=== PATIENT | female | born 1950 | race Caucasian/White ===

== ENCOUNTER → 2018-03-21 | Outpatient (CLI) | payer OTHER ==
[2018-03-21 12:41] LABS: HEMATOCRIT 39.2 % (35.0-46.0); HEMOGLOBIN 12.9 GM/DL (11.6-15.3); MEAN CELL VOLUME 77.9 FL (80.0-100.0); MEAN CORPUSCULAR HEMOGLOBIN 25.7 PG (27.0-34.0); MEAN PLATELET VOLUME 7.9 FL (7.0-11.0); PLATELET COUNT 303 TH/MM3 (150-450); RED BLOOD COUNT 5.03 MIL/MM3 (4.00-5.30); RED CELL DISTRIBUTION WIDTH 15.5 % (11.6-17.2); WHITE BLOOD COUNT 7.1 TH/MM3 (4.0-11.0)
[2018-03-21 13:12] LABS: ALBUMIN 3.8 GM/DL (3.4-5.0); ALT (GPT) 26 U/L (10-53); AST (GOT) 20 U/L (15-37); BICARBONATE 22.8 MEQ/L (21.0-32.0); BLOOD UREA NITROGEN 21 MG/DL (7-18); CALCIUM 8.8 MG/DL (8.5-10.1); CHLORIDE 108 MEQ/L (98-107); GLOMERULAR FILTRATION RATE 63 ML/MIN (>89); GLUCOSE,FASTING 103 MG/DL (74-99); SODIUM (NA) 140 MEQ/L (136-145)
[2018-03-21 13:15] LABS: ALKALINE PHOSPHATASE 89 U/L (45-117); TOTAL BILIRUBIN ADULT 0.3 MG/DL (0.2-1.0)
--- NOTE | 2018-03-21 13:23 | RADRPT ---
EXAM DATE: 03/21/2018 1:10 PM EDT AGE/SEX: 67 years / Female INDICATIONS: Evaluate for pneumonia, pneumothorax or communicable disease. Preop chest for hysterosc opy on 03/26/18 CLINICAL DATA: This is the patient's initial encounter. Patient reports that signs and symptoms have been present for 1 day and indicates a pain score of 0/10. MEDICAL/SURGICAL HISTORY: None. None. COMPARISON: No prior Sac exams available for comparison. FINDINGS: PA and lateral views of the chest demonstrate the lungs to be symmetrically aerated without evidence of mass, infiltrate or effusion. The cardiomediastinal contours are unremarkable. Osseous structures are intact. CONCLUSION: No acute cardiopulmonary findings. Electronically signed by: Yogesh Mendoza MD 03/21/2018 1:22 PM EDT
--- NOTE | 2018-03-22 14:54 | EKG ---
Date Performed: 03/21/2018 Time Performed: 12:32:17 PTAGE: 67 years EKG: Sinus rhythm POSSIBLE LEFT ATRIAL ENLARGEMENT SEPTAL MYOCARDIAL INFARCTION, PROBABLY OLD ABNORMAL ECG NO PREVIOUS TRACING DOCTOR: Brendan Billings Interpretating Date/Time 03/22/2018 14:52:08
== END ==
LOC: CPRE 12:11
PROVIDERS: ATTEND Obstetrics & Gynecology
DX: Z01.812 Encounter for preprocedural laboratory examination (principal); Z01.811 Encounter for preprocedural respiratory examination; Z01.810 Encounter for preprocedural cardiovascular examination; N95.0 Postmenopausal bleeding; R94.31 Abnormal electrocardiogram [ECG] [EKG]
CPT/HCPCS: 36415; 71046; 80053; 85027; 93005

== ENCOUNTER → 2018-03-26 | Day surgery (SDC) | payer OTHER ==
[~2018-03-26] VITALS: Ht 165.1 cm; Wt 82.9 kg
[~2018-03-26] MED LIST: ACETAMINOPHEN 1000 MG/100 ML 100 ML IV ONE; CHLORHEXIDINE GLUCONATE 2 % 1 PACK (2 CLOTHS) TOPICAL PRN; DEXAMETHASONE SOD PHOS 4 MG/ML VIAL IV ONE; DO NOT ADM ANY ANTICOAGULANT DRUGS PRN; KETOROLAC TROMETHAMINE 30 MG/ML (IVP) VIAL IM PRN; KETOROLAC TROMETHAMINE 30 MG/ML (IVP) VIAL IV PUSH ONE; LACTATED RINGER'S 1000 ML INJ 1,000 ML IV ONE; LACTATED RINGER'S 1000 ML IV PRN; LIDOCAINE HCL 1% PF 5 ML SYRINGE OTHER ONE; METOPROLOL TARTRATE 25 MG TAB PO PRN; MIDAZOLAM HCL 2 MG/2 ML VIAL ONE; ONDANSETRON HCL 4 MG/2 ML VIAL IV ONE; ONDANSETRON ODT 4 MG TAB SL PRN; POVIDONE IODINE 5% (ANTISEPSIS KIT) 4 APPLICATIONS EACH NARE PRN; PROPOFOL 200 MG/20 ML AMP IV ONE; SODIUM CHLORID 0.9% 500 ML IV PRN; ceFAZolin 2 GM/DEX PREMIX 50 ML IV SCH; oxyCODONE/ACETAMINOPHEN 5 MG/325 MG TAB PO PRN
--- NOTE | 2018-03-26 09:52 | MP ---
cc: Scarlett Palma MD DATE OF OPERATION: 03/26/2018 DATE OF PROCEDURE: 03/26/2018 PREOPERATIVE DIAGNOSES: 1. Postmenopausal bleeding. 2. Thickened endometrium. 3. Fibroid uterus. POSTOPERATIVE DIAGNOSES: 1. Postmenopausal bleeding. 2. Thickened endometrium. 3. Fibroid uterus. PROCEDURE PERFORMED: 1. Examination under anesthesia. 2. Cervical dilatation. 3. Hysteroscopy. 4. Cystoscopy. SURGEON: Scarlett Palma MD ANESTHESIA: General. FLUIDS: 400 mL crystalloid. ESTIMATED BLOOD LOSS: 10 mL. URINE OUTPUT: 200 mL, clear yellow on straight catheterization prior to the procedure. FINDINGS: Uterus was approximately 6-8 weeks in size on examination under anesthesia. No adnexal masses were palpable. Cervix was stenotic. Uterine perforation at hysteroscopy was suspected. At cystoscopy, no bladder injury was noted. DESCRIPTION OF PROCEDURE: The patient was taken to the operating room where general anesthesia was found to be adequate. She was then prepped and draped in the normal sterile fashion in the dorsal lithotomy position. The urinary bladder was emptied of urine using sterile technique. The introitus was noted to be small and atrophic. Small right angle retractors were used. A single-tooth tenaculum was placed on the anterior lip of the cervix. The cervix was noted to be extremely stenotic, not even admitting lacrimal dilators. A #11 scalpel blade was used to create a small external cervical os at that dimple. Lacrimal dilators were then used to gently dilate the cervix. Travis dilators, sizes 9 through 18 were then used to gently dilate the cervix. The 6 mm MyoSure hysteroscope was inserted through the cervix. At this time, uterine perforation was suspected. The hysteroscope was removed. No bleeding was noted. All of the instruments were removed from the vagina. Cystoscopy was performed with about 250 mL of saline. No bladder injury was noted and urine was noted to be effluxing from both of the ureteral meatuses. The cystoscope was removed. A small vaginal laceration was noted on the left side of the introitus and this was repaired with one suture of 3-0 chromic on an SH needle. Otherwise, hemostasis was noted. The fluid deficit was 605 mL at the hysteroscopy. The patient was awakened from anesthesia and transferred to recovery room in stable condition. The sponge, lap, needle and instrument counts were correct, and there was no pathology. MD LAMBERTO Pacheco/ESTHER , 09:11 AM , 09:50 AM
[2018-03-26 10:30] VITALS: BP 129/78; PULSE 69; RESP 16; TEMP 97.4; O2SAT 99
== END | disposition home or self-care (01) ==
LOC: HSDC 05:47
PROVIDERS: ATTEND Obstetrics & Gynecology
DX: N95.0 Postmenopausal bleeding (principal); N88.2 Stricture and stenosis of cervix uteri; N99.71 Accidental puncture and laceration of a genitourinary system organ or structure during a genitourinary system procedure; R93.8 Abnormal findings on diagnostic imaging of other specified body structures; D25.9 Leiomyoma of uterus, unspecified
CPT/HCPCS: 00942; 57200; 58555; 86850; 86900; 86901; J0131; J0690; J1100; J1885; J2250; J2405; J3010; J7120

== ENCOUNTER 2018-05-21 06:02 | Observation (INO) ==
[2018-05-21] MEDS ORDERED: Chlorhexidine Gluconate 2% 1 Pack (2 Cloths) TOPICAL SCH (06:30)
[2018-05-21] MEDS ORDERED: Metoprolol Tartrate 25 MG Tablet PO SCH (06:30)
[2018-05-21] MEDS ORDERED: ceFAZolin 2 GM Premix Inj 2 GM/50 ML PIGGYBACK IV.SIG SCH (07:00)
[2018-05-21] MEDS ORDERED: Sodium Chlor 0.9% Inj 500 ML IV.SIG SCH (07:00)
[2018-05-21] MEDS ORDERED: Bupivacaine/Epinephrine Inj 0.25% 50 ML Vial ONE (07:12)
[2018-05-21] MEDS ORDERED: Microfibrillar Collagen Hemostat 1 GM Packet TOPICAL ONE (07:17)
[2018-05-21] MEDS ORDERED: Naloxone Inj 0.4 MG/ML Vial IV.PUSH PRN (10:05)
[2018-05-21] MEDS ORDERED: HYDROmorphone PCA Inj 6 MG/30 ML PCA.VIAL PCA PRN (10:08)
[2018-05-21] MEDS ORDERED: fentaNYL Citrate Inj 100 MCG/2 ML Ampul ONE (10:23)
[2018-05-21] MEDS ORDERED: HYDROmorphone PCA Inj 6 MG/30 ML PCA.VIAL PCA ONE (10:40)
--- NOTE | 2018-05-21 10:44 | P.OP ---
- Preoperative Diagnosis (1) Fibroid (2) Abnormal findings on diagnostic imaging of other specified body structures (3) Stenosis, cervix - Postoperative Diagnosis (1) Abnormal findings on diagnostic imaging of other specified body structures (2) Fibroid (3) Stenosis, cervix Date of procedure: 05/21/18 Procedure: EUA, LAVH, BSO, cystoscopy Anesthesia: EVELIAA Surgeon: Scarlett Palma MD Estimated blood loss (mL): 10 IV fluids (mL): 1,000 Urine output (mL): 500 Pathology: other (uterus, cervix, tubes, ovaries) Operation and Findings: Patient was taken to the operating room and identified by name band and verbally. She received a general anesthetic and she was prepped and draped in the usual sterile manner for a laparoscopic hysterectomy. A Marshall catheter was inserted. A time out was taken and an exam under anesthesia was carried out with the above findings. A speculum was placed in the vagina and the anterior lip of the cervix was grasped with a single-tooth tenaculum. A Hulka clamp was placed and attention was turned to the umbilical area, a small subumbilical incision was made and using a 5 mm trocar the abdomen was entered under direct vision and a pneumoperitoneum was created with 3 L of CO2. Inferior lateral to the umbilicus bilaterally 2 more 5 mm trochars were placed under direct vision. Beginning with the round ligaments they were taken down with a harmonic scalpel. The bladder flap was created using the harmonic scalpel. The fimbriated ends of the fallopian tube was then grasped and the infundibulopelvic ligaments were taken down the entire length of the fallopian tubes. The broad ligament was then taken down with the harmonic scalpel to the level of the internal cervical os. The uterine vessels were skeletonized. The uterine vessels were then taken at the level of the internal cervical os with the harmonic scalpel. The cardinal ligament was then taken down with the harmonic scalpel staying very close to the cervix until the vaginal apex was obtained. At this point the harmonic scalpel was used to make a circumferential incision around the cervix, the uterus and tubes were then delivered through the vagina without difficulty. Pneumoperitoneum was released through the trocars, these were removed and the skin incisions were closed with 4-0 monocryl. The vaginal cuff was then repaired with [address]-2 in running fashion with good results. Hemostasis was excellent. The marshall catheter was used to instill about 250 cc of saline into the bladder, cystoscopy was performed and urine was noted to be effluxing from both of the ureteral meatuses. The cystoscope was removed, the marshall was replaced. Patient tolerated the procedure well and went to the recovery room in satisfactory condition.
[2018-05-21] MEDS ORDERED: Lidocaine PF 1% Inj 5 ML Syringe INFILTRATN ONE (12:00)
[2018-05-21] MEDS ORDERED: Neostigmine Inj 5 MG/5 ML Syringe IV.PUSH ONE (12:00)
[2018-05-21] MEDS ORDERED: Glycopyrrolate Inj 1 MG/5 ML Syringe IV.PUSH ONE (12:00)
[2018-05-21] MEDS ORDERED: Ibuprofen 600 MG Tablet PO PRN (16:00)
[2018-05-21] MEDS ORDERED: Zolpidem Tartrate 5 MG Tablet PO PRN (21:00)
[2018-05-21] MEDS: Docusate Sodium 100 MG Capsule PO SCH (21:37)
[2018-05-22 05:59] LABS: Baso % (Auto) 0.3 % (0.0-2.0); Eos % (Auto) 0.2 % (0.0-4.0); Hematocrit 37.7 % (35.0-46.0); Hemoglobin 12.2 gm/dL (11.6-15.3); Lymph # (Auto) 1.6 th/mm3 (1.0-4.8); Lymph % (Auto) 15.1 % (9.0-44.0); Mean Corpuscular HGB Conc 32.3 % (32.0-36.0); Mean Corpuscular Hemoglobin 25.3 pg (27.0-34.0); Mean Corpuscular Volume 78.2 fL (80.0-100.0); Mean Platelet Volume 8.1 fL (7.0-11.0); Mono # (Auto) 0.9 th/mm3 (0.0-0.9); Mono % (Auto) 8.3 % (0.0-8.0); Neut # (Auto) 7.8 th/mm3 (1.8-7.7); Neut % (Auto) 76.1 % (16.0-70.0); Platelet Count 294 th/mm3 (150-450); Red Blood Count 4.82 mil/mm3 (4.00-5.30); Red Cell Distribution Width 15.5 % (11.6-17.2); White Blood Count 10.3 th/mm3 (4.0-11.0)
--- NOTE | 2018-05-22 07:58 | P.OBGPN ---
POD #1 LAVH/BSO, cysto, doing well, no pain, no vomiting. marshall draining lots of clear urine VSS afeb Abd -soft, NT, ND, incisions C/D/I VE min bleeding Ext- no calf pain, SCDs in place A/P: LAVH/BSO for thick endometrium, PMB, fibroid, stenotic cx d/c home after void rto 2 wks, no lifting, nothing per vagina
[2018-05-22 08:51] VITALS: BP 129/73; PULSE 66; TEMP 98.1
[2018-05-22] MEDS: Docusate Sodium 100 MG Capsule PO SCH (09:59)
[2018-05-22 10:14] VITALS: O2SAT 100
[2018-05-22 10:32] VITALS: RESP 18
== END 2018-05-22 11:08 | disposition home or self-care (01) ==
LOC: HSDI 06:02 → HSDC 06:02 → H1EA 06:02
PROVIDERS: ADMIT Obstetrics & Gynecology; ATTEND Obstetrics & Gynecology